=== PATIENT | female | born 1985 | race Caucasian/White ===

== ENCOUNTER 2023-05-12 21:17 | Emergency (ER) | payer BC ==
[~2023-05-12] VITALS: Ht 177.8 cm; Wt 81.6 kg
[2023-05-12 22:25] VITALS: TEMP 98.3
[2023-05-12 23:04] LABS: BASOPHILS % (AUTO) 0.4 % (0.0-2.0); EOSINOPHILS # (AUTO) 0.1 K/uL (0.0-0.7); EOSINOPHILS % (AUTO) 0.8 % (0.0-6.0); HEMATOCRIT 40 % (33-45); HEMOGLOBIN 13.8 g/dL (11.5-14.8); LYMPHOCYTES # (AUTO) 1.9 K/uL (0.8-4.8); LYMPHOCYTES % (AUTO) 18.9 % (20.0-44.0); MEAN CORPUSCULAR HEMOGLOBIN 32 PG (26.0-33.0); MEAN CORPUSCULAR HGB CONC 35 g/dl (31.0-36.0); MEAN CORPUSCULAR VOLUME 92 fL (82-100); MONOCYTES # (AUTO) 0.6 K/uL (0.1-1.30); MONOCYTES % (AUTO) 5.5 % (2.0-12.0); NEUTROPHILS # (AUTO) 7.7 K/uL (1.8-8.9); NEUTROPHILS % (AUTO) 74.4 % (43.0-81.0); PLATELET COUNT (AUTO) 130 K/uL (150-450); RED BLOOD CELL COUNT(AUTO) 4.36 MIL/uL (4.0-5.2); RED CELL DISTRIBUTION WIDTH 12.5 % (11.5-15.0); WHITE BLOOD COUNT (AUTO) 10.3 K/uL (4.3-11.0)
[2023-05-12 23:23] LABS: BILIRUBIN,DIRECT 0.1 mg/dL (0.0-0.2); BILIRUBIN,TOTAL 0.3 mg/dL (0.2-1.0); CALCIUM, SERUM 9.7 mg/dL (8.5-10.1); CREATININE 0.7 mg/dL (0.6-1.3); POTASSIUM 3.5 mmol/L (3.5-5.1); TOTAL PROTEIN, SERUM 7.2 g/dL (6.4-8.2)
[2023-05-12 23:52] LABS: APPEARANCE,URINE CLEAR (CLEAR); BILIRUBIN,URINE NEGATIVE (NEGATIVE); BLOOD, URINE NEGATIVE Ery/uL (NEGATIVE); COLOR,URINE YELLOW (YELLOW); KETONES,URINE NEGATIVE (NEGATIVE); LEUKOCYTE ESTERASE ,URINE NEGATIVE (NEGATIVE); NITRITE, URINE NEGATIVE (NEGATIVE); PH,URINE 6.5 (5.0-8.0); PROTEIN,URINE NEGATIVE (NEGATIVE); UGLUCOSE NEGATIVE (NEGATIVE); UROBILINOGEN,URINE 0.2 EU/dL (0.2)
[2023-05-12 23:54] LABS: PREGNANCY TEST URINE QUAL NEGATIVE (NEGATIVE)
[2023-05-13] MEDS ORDERED: IOHEXOL-300 100 ML VIAL IV ONE (00:25)
[2023-05-13] MEDS ORDERED: CT SWABBABLE VALVE TRANS SET 1 EA INFUS.SET MC ONE (00:25)
[2023-05-13] MEDS ORDERED: IV NS 0.9% 250 ML IV ONE (00:26)
[2023-05-13] MEDS ORDERED: KETO10TA2 PO (01:51)
[2023-05-13 02:04] VITALS: BP 121/84; O2SAT 99
== END 2023-05-13 02:04 | disposition home or self-care (01) ==
LOC: ER 21:27
DX: R10.30 Lower abdominal pain, unspecified (principal); N83.8 Other noninflammatory disorders of ovary, fallopian tube and broad ligament; R10.2 Pelvic and perineal pain; Z79.899 Other long term (current) drug therapy; Z88.1 Allergy status to other antibiotic agents
CPT/HCPCS: 99285; 74177; 76856; 85025; 80048; 83690; 80076; 84703; 81003; 36415; J7050; Q9967

== ENCOUNTER 2024-10-02 15:41 | Emergency (ER) | payer BC, OTHER ==
[~2024-10-02] VITALS: Ht 177.8 cm; Wt 81.6 kg
[~2024-10-02 15:41] MED LIST: KETO10TA2 PO
[2024-10-02 15:50] VITALS: TEMP 97.6
[2024-10-02] MEDS ORDERED: CEPH-570 PO (16:41)
[2024-10-02] MEDS ORDERED: MUPI15CR TP (16:41)
[2024-10-02] MEDS: BACI/NEOM/POLY B OINT PKT 1 UDPKT PACKET TP ONE (16:56)
[2024-10-02] MEDS: TDAP [DIPH/PERTUSSIS/TET] 0.5 ML VIAL IM ONE (16:56)
[2024-10-02] MEDS: LIDOCAINE HCL/PF 1% 30 ML VIAL TP ONE (16:56)
[2024-10-02 17:13] VITALS: BP 120/62; O2SAT 98
== END 2024-10-02 17:36 | disposition home or self-care (01) ==
LOC: ER 15:41
DX: S91.111A Laceration without foreign body of right great toe without damage to nail, initial encounter (principal); Z88.1 Allergy status to other antibiotic agents; W22.8XXA Striking against or struck by other objects, initial encounter; Y93.89 Activity, other specified; Y92.89 Other specified places as the place of occurrence of the external cause; Y99.8 Other external cause status
CPT/HCPCS: 12001; 99283; A6403; J3490